=== PATIENT | female | born 1950 | race African-American/Black ===

== ENCOUNTER 2016-08-27 14:24 | Emergency (ER) | payer MEDICARE, MEDICAID ==
[~2016-08-27] VITALS: Ht 154.9 cm; Wt 92.5 kg
[2016-08-27 14:41] VITALS: BP 123/65
[2016-08-27] MEDS ORDERED: DuoNeb 0.5-3(2.5)mg/3ml neb HHN ONE (14:45)
[2016-08-27] MEDS ORDERED: Solu-MEDROL 125mg Inj IVP ONE (14:45)
--- NOTE | 2016-08-27 14:50 | Emergency Room Report ---
History of Present Illness General Chief Complaint: Dyspnea/Respdistress Source: Patient, EMS Present Illness HPI Patient is a 66-year-old female presented after increased difficulty breathing. Patient prior history of asthma and COPD. Patient reports having gradual onset of symptoms over the past 2-3 days. Patient had been having some worsening difficulty breathing with exertion. Patient had been using home oxygen. She had reportedly been taking albuterol without relief. Patient denied any fever. She denied any productive cough. She reported having minimal increase in leg swelling. Allergies: Coded Allergies: No Known Allergies (Unverified , 08/27/16) Patient History Past Medical History: see triage record, asthma, COPD Reviewed Nursing Documentation: PMH: Agreed, PSxH: Agreed Nursing Documentation-PMH Past Medical History: No History, Except For Hx Hypertension: Yes Hx Asthma: Yes Hx COPD: Yes Review of Systems All Other Systems: negative except mentioned in HPI Physical Exam Vital Signs Date Time Temp Pulse Resp B/P Pulse Ox O2 Delivery O2 Flow Rate FiO2 08/27/16 14:20 98.4 98 18 120/67 94 Room Air General Appearance: well appearing, alert, GCS 15, obese Eyes: bilateral eye PERRL ENT: normal pharynx, normal voice Neck: normal inspection, full range of motion, supple Respiratory: no respiratory distress, wheezing Cardiovascular #1: normal peripheral pulses, regular rate, rhythm, edema - trace Cardiovascular #2: 3+ carotid (R), 3+ carotid (L), 3+ dorsalis pedis (R), 3+ dorsalis pedis (L) Gastrointestinal: normal inspection, non tender, soft, no organomegaly Musculoskeletal: normal inspection, back normal Neurologic: normal inspection, alert, oriented x3, responsive Skin: normal inspection, normal color, no rash Medical Decision Making Diagnostic Impression: Primary Impression: COPD exacerbation ER Course Patient presented for shortness of breath. Differential included but was not limited to anemia, pneumonia, pneumothorax, myocardial infarction, pericardial effusion, congestive heart failure, acidosis. Because of complexity of patient' s case laboratory testing and imaging studies were ordered. Patient was given IV steroids. She was given breathing treatments. Patient was initially started on supplemental oxygen.The patient was given IV Solu- Medrol with improvement. The patient stated she felt better want to go home. She was given prescription for oral steroids. She reportedly has her inhalers. The time of discharge patient was in with her without assistance was moving air well Last Vital Signs Date Time Temp Pulse Resp B/P Pulse Ox O2 Delivery O2 Flow Rate FiO2 08/27/16 14:41 98.4 91 17 123/65 96 Nasal Cannula Status: improved Disposition: HOME, SELF-CARE Condition: Stable Scripts Prednisone* (PREDNISONE*) 20 Mg Tablet 40 MG ORAL DAILY, #10 TAB Prov: Ryan Burgess 08/27/16 Ryan Burgess Aug 27, 2016 14:50
[2016-08-27] MEDS ORDERED: PREDNISONE20 MG ORAL (15:28)
[2016-08-27 15:37] VITALS: BP 123/65
--- NOTE | 2016-08-28 11:55 | Diagnostic Imaging Report ---
Indication: Dyspnea Comparison: None A single view chest radiograph was obtained. Findings: Cardiomediastinal appearance is within normal limits for age. Pulmonary vascularity is appropriate. The diaphragmatic contour is smooth and costophrenic angles are sharp. No pleural effusions are identified. The bones are unremarkable. Impression: No acute findings
--- NOTE | 2016-08-28 16:51 | Cardiology Report ---
APPROVED REPORT EKG Measurement Heart [id number] Sinus rhythm with 1st degree AV block Low voltage QRS Borderline ECG
== END 2016-08-27 15:37 | disposition home or self-care (01) ==
LOC: EDBD 14:24 → EMR 15:10
DX: J44.1 Chronic obstructive pulmonary disease with (acute) exacerbation (principal); I10 Essential (primary) hypertension; Z99.81 Dependence on supplemental oxygen; R22.40 Localized swelling, mass and lump, unspecified lower limb; E66.9 Obesity, unspecified
CPT/HCPCS: 71010; 93005; 94640; 96374; 99284; J2930; 82962; J7620

== ENCOUNTER 2016-10-28 12:22 | Emergency (ER) | payer MEDICARE, MEDICAID ==
[~2016-10-28] VITALS: Ht 154.9 cm; Wt 91.2 kg
[~2016-10-28 12:22] MED LIST: PREDNISONE20 MG ORAL
[2016-10-28] MEDS ORDERED: VENTOLIN HFA18 GM INH (12:58)
[2016-10-28] MEDS ORDERED: KEFLEX500 MG ORAL (12:58)
[2016-10-28] MEDS ORDERED: PREDNISONE20 MG ORAL (12:58)
[2016-10-28 13:00] VITALS: BP 116/83
[2016-10-28] MEDS ORDERED: Albuterol ud Inhalation HHN ONE (13:00)
[2016-10-28] MEDS ORDERED: PredniSONE 20mg tab ORAL ONE (13:00)
[2016-10-28 14:10] VITALS: BP 116/83
--- NOTE | 2016-10-31 14:11 | Emergency Room Report ---
History of Present Illness General Chief Complaint: General Complaint Source: Patient, Medical Record Present Illness HPI 66YOF walk-in with multiple complaints SOB for 2-3 days - ran out of home albuterol. No fever/chills, chest pain Also bilateral leg swelling and area of redness to right lower extremity lateral aspect No history of abscesses, cellulitis previously Supposed to be on "water pill" but questionable compliance Allergies: Coded Allergies: No Known Allergies (Unverified , 08/27/16) Patient History Past Medical History: CHF, asthma Past Surgical History: none Pertinent Family History: none Social History: Denies: smoking, alcohol use, drug use Now: No Immunizations: UTD Reviewed Nursing Documentation: PMH: Agreed, PSxH: Agreed Nursing Documentation-PMH Past Medical History: No History, Except For Hx Hypertension: Yes Hx Asthma: Yes Hx COPD: Yes Review of Systems All Other Systems: negative except mentioned in HPI Physical Exam Vital Signs Date Time Temp Pulse Resp B/P (MAP) Pulse Ox O2 Delivery O2 Flow Rate FiO2 10/28/16 12:30 98.1 83 16 135/78 95 Room Air Sp02 EP Interpretation: reviewed, normal General Appearance: normal inspection, well appearing, no apparent distress, alert, GCS 15, non-toxic Head: normocephalic, atraumatic Eyes: bilateral eye PERRL, bilateral eye EOMI ENT: normal ENT inspection, hearing grossly normal, normal voice Neck: normal inspection, full range of motion, supple, no bony tend Respiratory: normal inspection, no respiratory distress, no retraction, no accessory muscle use, speaking full sentences, wheezing Cardiovascular #1: regular rate, rhythm, no edema Gastrointestinal: normal inspection, normal bowel sounds, non tender, soft, no guarding, no hernia Genitourinary: no CVA tenderness Musculoskeletal: normal inspection, back normal, normal range of motion, Yousuf' s Sign negative, other - Bilateral 2+ pitting edema to mid-thigh. 4cm area of cellulitis to lateral right lower extremity Neurologic: normal inspection, alert, oriented x3, responsive, stroboscope operator III-XII nml as tested, motor strength/tone normal, speech normal Psychiatric: normal inspection, judgement/insight normal, mood/affect normal Skin: normal inspection, normal color, no rash Lymphatic: normal inspection Medical Decision Making Diagnostic Impression: Primary Impression: Cellulitis and abscess of leg Additional Impression: Asthma exacerbation ER Course Right leg cellulitis: Keflex given Rx Asthma exacerbation - mild wheezing. Improved with steroids, albuterol. Rx for both given STRONGLY advised lab work, ECG, CXR and admission given patients pitting edema, ?CHF history and cellulitis with asthma exacerbation Patient only comfortable with neb, steroid and outpatient Rx, states she has guests coming for tomorrow Patient is clinically sober, is free from from distracting injury, and has intact judgement and capacity to decide to leave against medical advice. Patient came in with SOB and right leg cellulitis. Concerned for new onset CHF , complicated cellulitis. Patient verbalized understanding of my concern and my need to do CXR, ECG, labwork but patient states she cant stay (see above.). I explained to patient the risks of leaving AMA and patient informed that if they she leaves, they could get worse, she could become become critically ill, possibly become disabled or . Patient verbalized back to me understanding of these risks but still wants to leave. Last Vital Signs Date Time Temp Pulse Resp B/P (MAP) Pulse Ox O2 Delivery O2 Flow Rate FiO2 10/28/16 14:10 98.1 79 18 116/83 95 Room Air Status: improved Disposition: AGAINST MEDICAL ADVICE Condition: Improved Scripts Cephalexin* (KEFLEX*) 500 Mg Capsule 500 MG ORAL Q6H for 7 Days, #28 CAP 0 Refills Prov: RUBÉN NEAL M.D. 10/28/16 Prednisone* (PREDNISONE*) 20 Mg Tablet 40 MG ORAL DAILY for 4 Days, #4 TAB Prov: RUBÉN NEAL M.D. 10/28/16 Albuterol Sulfate (VENTOLIN HFA) 18 Gm Hfa.aer.ad 1 PUFF INH EVERY 6 HOURS for SOB, chest pain, #18 GM 0 Refills Prov: RUBÉN NEAL M.D. 10/28/16 Referrals: NOT CHOSEN IPA/,REFERRING (PCP) Patient Instructions: Acute Bronchitis, [id number], Cellulitis, [id number] Additional Instructions: - Take ALL antibiotics to treat infection of your right leg - Take prednisone daily next 4 days - Use breathing tx as needed at home for COPD - Return to ER for worsening symptoms RUBÉN NEAL M.D. Oct 31, 2016 14:11
== END 2016-10-28 14:10 | disposition left against medical advice (07) ==
LOC: EMR 14:09
DX: L03.115 Cellulitis of right lower limb (principal); L02.415 Cutaneous abscess of right lower limb; J45.901 Unspecified asthma with (acute) exacerbation; I11.0 Hypertensive heart disease with heart failure; I50.9 Heart failure, unspecified; J44.9 Chronic obstructive pulmonary disease, unspecified
CPT/HCPCS: 99284

== ENCOUNTER 2017-05-14 13:50 | Inpatient (IN) | payer MEDICARE, MEDICAID ==
[~2017-05-14] VITALS: Ht 157.5 cm; Wt 99.8 kg
[~2017-05-14 13:50] MED LIST changes: +KEFLEX500 MG ORAL; +VENTOLIN HFA18 GM INH
--- NOTE | 2017-05-14 13:58 | Emergency Room Report ---
History of Present Illness General Chief Complaint: Pain Source: Patient Present Illness HPI 67 yo female patient presents to ER complaining of hip pain since this morning. Denies hx of trauma or accident. Reports pain radiating from back to groin. Reports hx of spinal stenosis; states this pain feels different. Reports unable to watch secondary to pain. Reports taking [place] and Ibuprofen this morning; reports using [place] for pain. Reports hx of asthma, reports wheezing. Reports hx of COPD. Reports used breathing treatment this morning. Wears nasal cannula connected to oxygen mask. Denies abdominal pain. Denies chest pain, fever, abdominal pain, dysuria, hematuria, rash. Denies hx of smoking. Reports hx of HTN; reports taking Lasix every other day, reports did not take today. Allergies: Coded Allergies: No Known Allergies (Unverified , 08/27/16) Patient History Past Medical History: see triage record Reviewed Nursing Documentation: PMH: Agreed, PSxH: Agreed Nursing Documentation-PMH Past Medical History: No History, Except For Hx Hypertension: Yes Hx Asthma: Yes Hx COPD: Yes Review of Systems All Other Systems: negative except mentioned in HPI Physical Exam Vital Signs Date Time Temp Pulse Resp B/P (MAP) Pulse Ox O2 Delivery O2 Flow Rate FiO2 05/14/17 13:45 98.2 80 20 142/38 98 98.2 Sp02 EP Interpretation: reviewed, normal General Appearance: well appearing, no apparent distress, alert, GCS 15, non- toxic Head: normocephalic, atraumatic Eyes: bilateral eye normal inspection, bilateral eye PERRL ENT: hearing grossly normal, normal pharynx, no angioedema, normal voice, uvula midline, moist mucus membranes Respiratory: no rhonchi, no respiratory distress, speaking full sentences, wheezing Cardiovascular #1: regular rate, rhythm, no edema Musculoskeletal: back normal, digits/nails normal, no calf tenderness, Yousuf's Sign negative, tender - left hip Neurologic: alert, oriented x3, responsive, motor strength/tone normal, sensory intact Psychiatric: mood/affect normal Skin: no rash Lymphatic: no adenopathy Medical Decision Making PA Attestation Dr. Thacker is my supervising Physician whom patient management has been discussed with. Diagnostic Impression: Primary Impression: Hip pain Additional Impression: COPD exacerbation ER Course Pt presents to ED c/o hip pain. DDX considered but are not limited to asthma, viral URI, influenza, bronchitis, fracture, strain, sprain, UTI, COPD exacerbation. Following placement in bed, patient began to complain of breathing difficulty. Reports hx of asthma and COPD. Wheezing heard on auscultation. VITAL SIGNS are WNL, patient is afebrile. Ordered breathing treatment, labs, CT pelvis and medication. ER COURSE Patient provided with [place] for pain. Albuterol/Atrovent breathing treatment provided. Following treatment patient states still having difficulty with breathing. Wheezing still present on auscultation. Labs unremarkable, no elevation in WBC. UA negative for nitrites, WBC 2-4, epithelial cells show contamination of sample. Patient has no urinary complaints. Will not treat currently in ER for UTI. CT shows no acute process, degenerative changes. Consult with Dr. Thacker. IV fluids stopped. Dr. Thacker saw and evaluated patient. Patient moved to monitored bed. Ordered albuterol, prednisone, azithromycin and CXR. Will admit patient for SOB and unable to walk. Patient admitted to Dr. Manuel for possible COPD/CHF exacerbation. Per nurse, patient daughter reports to ER. States patient has a history of CA, reports she has not told the patient; patient is unaware of cancer status. Patient complaining of pain. Provided with morphine. Labs Test 05/14/17 13:38 05/14/17 14:04 White Blood Count 10.0 K/UL (4.8-10.8) Red Blood Count 4.59 M/UL (4.20-5.40) Hemoglobin 14.4 G/DL (12.0-16.0) Hematocrit 42.6 % (37.0-47.0) Mean Corpuscular Volume 93 FL (80-99) Mean Corpuscular Hemoglobin 31.3 PG (27.0-31.0) Mean Corpuscular Hemoglobin Concent 33.7 G/DL (32.0-36.0) Red Cell Distribution Width 11.6 % (11.6-14.8) Platelet Count 388 K/UL (150-450) Mean Platelet Volume 6.7 FL (6.5-10.1) Neutrophils (%) (Auto) 67.6 % (45.0-75.0) Lymphocytes (%) (Auto) 21.5 % (20.0-45.0) Monocytes (%) (Auto) 7.6 % (1.0-10.0) Eosinophils (%) (Auto) 2.1 % (0.0-3.0) Basophils (%) (Auto) 1.2 % (0.0-2.0) Sodium Level 137 MMOL/L (136-145) Potassium Level 3.9 MMOL/L (3.5-5.1) Chloride Level 101 MMOL/L (98-107) Carbon Dioxide Level 27 MMOL/L (21-32) Anion Gap 9 mmol/L (5-15) Blood Urea Nitrogen 10 mg/dL (7-18) Creatinine 0.8 MG/DL (0.55-1.30) Estimat Glomerular Filtration Rate > 60 mL/min (>60) Glucose Level 106 MG/DL (74-106) Calcium Level 9.6 MG/DL (8.5-10.1) Total Bilirubin 0.7 MG/DL (0.2-1.0) Aspartate Amino Transf (AST/SGOT) 21 U/L (15-37) Alanine Aminotransferase (ALT/SGPT) 28 U/L (12-78) Alkaline Phosphatase 80 U/L (46-116) Total Protein 7.8 G/DL (6.4-8.2) Albumin 4.0 G/DL (3.4-5.0) Globulin 3.8 g/dL Albumin/Globulin Ratio 1.1 (1.0-2.7) Lipase 77 U/L (73-393) Urine Color Yellow Urine Appearance Clear Urine pH 5 (4.5-8.0) Urine Specific [place] 1.020 (1.005-1.035) Urine Protein 2+ (NEGATIVE) Urine Glucose (UA) Negative (NEGATIVE) Urine Ketones 1+ (NEGATIVE) Urine Occult Blood Negative (NEGATIVE) Urine Nitrite Negative (NEGATIVE) Urine Bilirubin Negative (NEGATIVE) Urine Urobilinogen 1 MG/DL (0.0-1.0) Urine Leukocyte Esterase 1+ (NEGATIVE) Urine RBC 0-2 /HPF (0 - 2) Urine WBC 2-4 /HPF (0 - 2) Urine Squamous Epithelial Cells Moderate /LPF (NONE/OCC) Urine Bacteria Occasional /HPF (NONE) CT/MRI/US Diagnostic Results CT/MRI/US Diagnostic Results : Imaging Test Ordered: CT hip Impression No acute bony trauma Degenerative changes, as described Last Vital Signs Date Time Temp Pulse Resp B/P (MAP) Pulse Ox O2 Delivery O2 Flow Rate FiO2 05/14/17 13:45 98.2 80 20 142/38 98 98.2 Disposition: ADMITTED INPATIENT [employer] May 14, 2017 13:58
[2017-05-14] MEDS ORDERED: Albuterol/Ipratropium 3ml neb HHN ONE (14:15)
[2017-05-14] MEDS ORDERED: Norco 5mg/325mg tab ORAL ONE (14:15)
[2017-05-14 14:54] LABS: APPEARANCE,URINE CLEAR; BILIRUBIN, URINE NEGATIVE (NEGATIVE); GLUCOSE, URINE (UA) NEGATIVE (NEGATIVE); KETONES,URINE 1+ (NEGATIVE); LEUKOCYTE ESTERASE ,URINE 1+ (NEGATIVE); NITRITE,URINE NEGATIVE (NEGATIVE); PH,URINE 5 (4.5-8.0); PROTEIN,URINE 2+ (NEGATIVE); UROBILINOGEN,URINE 1 MG/DL (0.0-1.0)
[2017-05-14 14:55] LABS: COLOR,URINE YELLOW
[2017-05-14 14:57] VITALS: BP 142/38
[2017-05-14 15:01] LABS: BASOPHILS % (AUTO) 1.2 % (0.0-2.0); EOSINOPHILS % (AUTO) 2.1 % (0.0-3.0); HEMATOCRIT 42.6 % (37.0-47.0); HEMOGLOBIN 14.4 G/DL (12.0-16.0); LYMPHOCYTES % (AUTO) 21.5 % (20.0-45.0); MEAN CORPUSCULAR VOLUME 93 FL (80-99); MONOCYTES % (AUTO) 7.6 % (1.0-10.0); NEUTROPHILS % (AUTO) 67.6 % (45.0-75.0); PLATELET COUNT 388 K/UL (150-450); RED BLOOD COUNT 4.59 M/UL (4.20-5.40); RED CELL DISTRIBUTION WIDTH 11.6 % (11.6-14.8)
--- NOTE | 2017-05-14 15:23 | Diagnostic Imaging Report ---
Indication: Left hip pain Technique: Noncontrast spiral acquisitions obtained through the pelvis. Multiplanar reconstructions generated. Total dose length product 603.51 mGycm. CTDIvol(s) 22.28 mGy. Dose reduction achieved using automated exposure control Comparison: none Findings: No acute fractures. No dislocations. There is degenerative narrowing of the right hip joint, with a large subchondral cyst on the acetabular side of the joint as well as multiple smaller subchondral cysts. Less severe degenerative changes of the left hip are noted. There are degenerative changes of the lumbosacral junction. No significant soft tissue contusion or hematoma. The included pelvic viscera are unremarkable. Impression: No acute bony trauma Degenerative changes, as described The CT scanner at [facility] is accredited by the [employer] and the scans are performed using protocols designed to limit radiation exposure to as low as reasonably achievable to attain images of sufficient resolution adequate for diagnostic evaluation.
[2017-05-14] MEDS ORDERED: Azithromycin 500 MG in NS 275 ML IV ONE (15:30)
[2017-05-14] MEDS ORDERED: Albuterol ud Inhalation HHN ONE (15:30)
[2017-05-14 15:35] LABS: ANION GAP 9 mmol/L (5-15); BLOOD UREA NITROGEN 10 mg/dL (7-18); CALCIUM 9.6 MG/DL (8.5-10.1); CARBON DIOXIDE 27 MMOL/L (21-32); CHLORIDE 101 MMOL/L (98-107); CREATININE 0.8 MG/DL (0.55-1.30); POTASSIUM 3.9 MMOL/L (3.5-5.1); SODIUM 137 MMOL/L (136-145)
[2017-05-14 15:40] LABS: ALANINE AMINOTRANSFERASE 28 U/L (12-78); ALBUMIN/GLOBULIN RATIO 1.1 (1.0-2.7); ALKALINE PHOSPHATASE 80 U/L (46-116); ASPARTATE AMINO TRANSFERASE 21 U/L (15-37); BILIRUBIN,TOTAL 0.7 MG/DL (0.2-1.0)
[2017-05-14] MEDS ORDERED: Azithromycin 500mg Inj IV ONE (15:47)
[2017-05-14] MEDS ORDERED: Morphine Sulfate 2mg/ml Inj IVP ONE (16:30)
--- NOTE | 2017-05-14 16:41 | Diagnostic Imaging Report ---
Indication: Shortness of breath Technique: One view of the chest Comparison: 08/27/2016 Findings: Patient is slightly rotated to the right. There is some atelectasis at the right lung base. Lungs and pleural spaces are otherwise clear. Heart size is normal. The aorta is tortuous ectatic and calcified. Mild degenerative changes of the left shoulder are noted Impression: Right basilar atelectasis. No acute process otherwise
[2017-05-14] MEDS ORDERED: UNOBMED (17:04)
[2017-05-14] MEDS ORDERED: ALBUTEROL2.5 MG/3 M INH (17:43)
[2017-05-14] MEDS ORDERED: HYDROCODON-ACE1 EA15 (17:43)
[2017-05-14] MEDS ORDERED: AMLODIPINE BESY10 MG PO (17:47)
[2017-05-14] MEDS ORDERED: VENTOLIN HFA18 GM INH (17:47)
[2017-05-14] MEDS ORDERED: FUROSEMIDE20 M1 PO (17:47)
[2017-05-14] MEDS ORDERED: IBUPROFEN600 MG ORAL (17:49)
[2017-05-14] MEDS ORDERED: BENAZEPRIL HCL40 MG PO (17:49)
[2017-05-14 17:56] VITALS: BP 132/75
--- NOTE | 2017-05-14 17:56 | History and Physical ---
History of Present Illness General Date patient seen: May 14, 2017 Time patient seen: 17:56 Reason for Hospitalization: COPD exacerbation, intractable pain Present Illness HPI 67y/o female with pmh of COPD/asthma on home O2 (2-3L O2), HTN, CHF who presents with L lower back/hip pain and SOB/wheezing. Pt states she had sudden onset L lower back pain radiating toward L hip and groin for the past few days, worsening. Notes pain worse w/ laying flat, walking. States this is different than her usual spinal stenosis pain. Pain does not radiate down leg. Denies numbness/tingling, f/c, n/v, d/c, chest pain. Also notes sudden SOB/wheezing for the past few days, using rescue inhaler more often. States she is compliant w/ meds. Denies recent trauma, heavy lifting, accident. Difficulty ambulating 2/ 2 pain. Cough at baseline. In ED, pt had CT pelvis done which was unremarkable except for degenerative changes. Pt noted to have significant wheezing. Given nebs, steroids, azithro in ED. Allergies: Coded Allergies: No Known Allergies (Unverified , 08/27/16) Medication History Scheduled Albuterol Sulfate (Ventolin Hfa), 2 PUFFS INH EVERY 4 HOURS, (Reported) Albuterol Sulfate* (Albuterol Sulfate Hhn*), 1 VIAL INH Q6HR, (Reported) Amlodipine Besylate* (Amlodipine Besylate*), 10 MG PO DAILY, (Reported) Benazepril Hcl* (Benazepril Hcl*), 40 MG PO DAILY, (Reported) Furosemide* (Lasix*), 20 MG PO DAILY, (Reported) Ibuprofen* (Motrin*), 500 MG ORAL FOUR TIMES A DAY, (Reported) Scheduled PRN Hydrocodone/Acetaminophen 5-325* (Hydrocodone/Acetaminophen 5-325*), Q6HR PRN for For Pain, (Reported) Discontinued Medications Albuterol Sulfate (Ventolin Hfa), 1 PUFF INH EVERY 6 HOURS Discontinued Reason: Pt stopped taking med Cephalexin* (Keflex*), 500 MG ORAL Q6H Discontinued Reason: Pt stopped taking med Prednisone* (Prednisone*), 40 MG ORAL DAILY Discontinued Reason: Pt stopped taking med Prednisone* (Prednisone*), 40 MG ORAL DAILY Discontinued Reason: Pt stopped taking med Patient History History Provided By: Patient, Medical Record Healthcare decision maker Resuscitation status Advanced Directive on File Past Medical/Surgical History Past Medical/Surgical History: (1) CHF (congestive heart failure) (2) Lumbar spinal stenosis (3) HTN (hypertension) (4) Asthma-COPD overlap syndrome Family History Family History: Patient reports no known family medical history. Social History Social History: (1) Lives with family (2) Former tobacco use Review of Systems Constitutional: Reports: weakness Eye: Reports: no symptoms ENT: Reports: no symptoms Respiratory: Reports: cough, shortness of breath, wheezing Cardiovascular: Reports: no symptoms Gastrointestinal: Reports: no symptoms Genitourinary: Reports: no symptoms Musculoskeletal: Reports: back pain, joint pain, muscle pain Skin: Reports: no symptoms Psychiatric: Reports: no symptoms Neurological: Reports: no symptoms Endocrine: Reports: no symptoms Hematologic/Lymphatic: Reports: no symptoms Physical Exam Physical Exam Narrative General: alert, cooperative, no distress, appears stated age Head: normocephalic, without obvious abnormality, atraumatic Eyes: conjunctivae/corneas clear. PERRL, EOM's intact Throat: lips, mucosa, and tongue normal. MMM Neck: supple, symmetrical, trachea midline, and no JVD Lungs: +wheezing b/l Heart: regular rate and rhythm, S1, S2 normal, no murmur, click, rub or gallop Abdomen: soft, non-tender, non-distended, bowel sounds normal; no masses or organomegaly Extremities: extremities normal, atraumatic, no cyanosis or edema MSK: +TTP of L lower back/hip/pelvic area Pulses: 2+ and symmetric Skin: skin color, texture, turgor normal; no rashes or lesions Neurologic: grossly normal, no focal deficits Last 24 Hour Vital Signs Date Time Temp Pulse Resp B/P (MAP) Pulse Ox O2 Delivery O2 Flow Rate FiO2 05/14/17 17:43 97 25 Room Air 05/14/17 16:44 98.2 05/14/17 15:44 98.2 05/14/17 15:35 82 16 100 Nasal Cannula 3.0 32 05/14/17 15:30 81 18 Nasal Cannula 3.0 98 05/14/17 14:57 98.2 05/14/17 14:57 80 16 142/38 100 Nasal Cannula 3.0 32 05/14/17 14:36 86 16 100 Nasal Cannula 3.0 32 05/14/17 14:28 84 16 98 Nasal Cannula 3.0 32 05/14/17 14:28 84 16 Nasal Cannula 3.0 98 05/14/17 13:45 98.2 80 20 142/38 98 98.2 Laboratory Tests Test 05/14/17 13:38 05/14/17 14:04 White Blood Count 10.0 K/UL (4.8-10.8) Red Blood Count 4.59 M/UL (4.20-5.40) Hemoglobin 14.4 G/DL (12.0-16.0) Hematocrit 42.6 % (37.0-47.0) Mean Corpuscular Volume 93 FL (80-99) Mean Corpuscular Hemoglobin 31.3 PG (27.0-31.0) H Mean Corpuscular Hemoglobin Concent 33.7 G/DL (32.0-36.0) Red Cell Distribution Width 11.6 % (11.6-14.8) Platelet Count 388 K/UL (150-450) Mean Platelet Volume 6.7 FL (6.5-10.1) Neutrophils (%) (Auto) 67.6 % (45.0-75.0) Lymphocytes (%) (Auto) 21.5 % (20.0-45.0) Monocytes (%) (Auto) 7.6 % (1.0-10.0) Eosinophils (%) (Auto) 2.1 % (0.0-3.0) Basophils (%) (Auto) 1.2 % (0.0-2.0) Sodium Level 137 MMOL/L (136-145) Potassium Level 3.9 MMOL/L (3.5-5.1) Chloride Level 101 MMOL/L (98-107) Carbon Dioxide Level 27 MMOL/L (21-32) Anion Gap 9 mmol/L (5-15) Blood Urea Nitrogen 10 mg/dL (7-18) Creatinine 0.8 MG/DL (0.55-1.30) Estimat Glomerular Filtration Rate > 60 mL/min (>60) Glucose Level 106 MG/DL (74-106) Calcium Level 9.6 MG/DL (8.5-10.1) Total Bilirubin 0.7 MG/DL (0.2-1.0) Aspartate Amino Transf (AST/SGOT) 21 U/L (15-37) Alanine Aminotransferase (ALT/SGPT) 28 U/L (12-78) Alkaline Phosphatase 80 U/L (46-116) Total Protein 7.8 G/DL (6.4-8.2) Albumin 4.0 G/DL (3.4-5.0) Globulin 3.8 g/dL Albumin/Globulin Ratio 1.1 (1.0-2.7) Lipase 77 U/L (73-393) Urine Color Yellow Urine Appearance Clear Urine pH 5 (4.5-8.0) Urine Specific Adin 1.020 (1.005-1.035) Urine Protein 2+ (NEGATIVE) H Urine Glucose (UA) Negative (NEGATIVE) Urine Ketones 1+ (NEGATIVE) H Urine Occult Blood Negative (NEGATIVE) Urine Nitrite Negative (NEGATIVE) Urine Bilirubin Negative (NEGATIVE) Urine Urobilinogen 1 MG/DL (0.0-1.0) H Urine Leukocyte Esterase 1+ (NEGATIVE) H Urine RBC 0-2 /HPF (0 - 2) Urine WBC 2-4 /HPF (0 - 2) Urine Squamous Epithelial Cells Moderate /LPF (NONE/OCC) H Urine Bacteria Occasional /HPF (NONE) Height (Feet): 5 Height (Inches): 2.00 Weight (Pounds): 220 Medications Current Medications Medications (Trade) Dose Ordered Sig/Sadie Route PRN Reason Start Time Stop Time Status Last Admin Dose Admin Acetaminophen (Tylenol) 650 mg Q4H PRN ORAL Mild Pain (Pain Scale 1-3) 05/14/17 18:00 06/13/17 17:59 UNV Acetaminophen (Tylenol) 650 mg Q4H PRN ORAL fever 05/14/17 18:00 06/13/17 17:59 UNV Albuterol/ Ipratropium (Albuterol/ Ipratropium) 3 ml Q2H PRN HHN Shortness of Breath 05/14/17 18:00 05/19/17 17:59 UNV Albuterol/ Ipratropium (Albuterol/ Ipratropium) 3 ml Q6H HHN 05/14/17 18:00 05/19/17 17:59 UNV Amlodipine Besylate (Norvasc) 10 mg DAILY ORAL 05/15/17 09:00 06/14/17 08:59 UNV Bisacodyl (Dulcolax) 10 mg DAILYPRN PRN RECTAL Constipation 05/14/17 18:00 06/13/17 17:59 UNV Dextrose (Dextrose 50%) STAT PRN IV Hypoglycemia 05/14/17 18:00 06/13/17 17:59 UNV Docusate Sodium (Colace) 100 mg EVERY 12 HOURS ORAL 05/14/17 21:00 06/13/17 20:59 UNV Heparin Sodium (Porcine) (Heparin 5000 units/ml) 5,000 units EVERY 12 HOURS SUBQ 05/14/17 21:00 06/13/17 20:59 UNV Magnesium Hydroxide (Mom) 30 ml HSPRN PRN ORAL Constipation 05/14/17 18:00 06/13/17 17:59 UNV Ondansetron HCl (Zofran) 4 mg Q6H PRN IVP Nausea & Vomiting 05/14/17 18:00 06/13/17 17:59 UNV Assessment/Plan Problem List: (1) Acute exacerbation of COPD with asthma ICD Codes: J44.1 - Chronic obstructive pulmonary disease with (acute) exacerbation; J45.901 - Unspecified asthma with (acute) exacerbation SNOMED: 3089537020908 (2) L lower back/hip/pelvic pain Assessment & Plan: Intractable pain w/ difficulty ambulating (3) Chronic diastolic (congestive) heart failure ICD Codes: I50.32 - Chronic diastolic (congestive) heart failure SNOMED: 58191304, 526640814 (4) HTN (hypertension) ICD Codes: I10 - Essential (primary) hypertension SNOMED: 84249468 (5) Lumbar spinal stenosis ICD Codes: M48.061 - Spinal stenosis, lumbar region without neurogenic claudication SNOMED: 24701704 Status: stable Assessment/Plan Admit to tele Pulm consulted s/p solumedrol 125mg IV in ED Cont solumedrol 60mg IV BID and taper as tolerated Cont duonebs ATC and PRN Azithro 500mg daily x 5 days Cont O2, titrate to O2 sat 88-92% Check trop, BNP, TTE Check MRI L spine/sacrum given persistent pain, difficulty ambulating PT eval Pain control, bowel regimen Supportive care DVT Prophylaxis: SCD, HSQ Code Status: Full Hospital Classification Declaration: Based on this initial evaluation, and depending on the patient's clinical course, I anticipate that this patient will require hospitalization for 2-3 days for COPD exacerbation, intractable pain, and close respiratory/hemodynamic monitoring. Disposition: Once the patient is stable to leave the hospital, I anticipate the patient will likely be discharged to the following environment: home with HH vs SNF I spent 69 minutes on this patient's case, and >50% were dedicated to counseling and/or care coordination. Discussed with patient/family, nursing staff, SW/CM, pulm, ER physician regarding clinical status, treatment course, and disposition planning. Time of note may not reflect time of encounter. Raymon Seymour M.D. May 14, 2017 17:56
[2017-05-14] MEDS ORDERED: Albuterol/Ipratropium 3ml neb HHN PRN (18:00)
[2017-05-14] MEDS ORDERED: Milk of Magnesia 30ml Ud ORAL PRN (18:00)
[2017-05-14] MEDS ORDERED: Morphine Sulfate 4mg/ml Inj IVP PRN (18:30)
[2017-05-14] MEDS ORDERED: HYDROcodone/Acetamin 7.5/325 tab ORAL PRN (18:30)
[2017-05-14] MEDS: Albuterol/Ipratropium 3ml neb HHN SCH (19:23)
[2017-05-14 20:00] VITALS: BP 142/82
[2017-05-14] MEDS: HYDROcodone/Acetamin 10/325 tab ORAL PRN (20:41)
[2017-05-14] MEDS: Solu-MEDROL 125mg Inj IVP SCH (20:42)
[2017-05-14] MEDS: Heparin 5000 units/ml inj SUBQ SCH (20:46)
[2017-05-14] MEDS: Docusate 100mg cap ORAL SCH (20:49)
[2017-05-15] VITALS: BP 128/68
[2017-05-15] MEDS: HYDROcodone/Acetamin 10/325 tab ORAL PRN ×3 (00:57→13:20)
[2017-05-15] MEDS: Albuterol/Ipratropium 3ml neb HHN SCH ×4 (01:08→18:54)
[2017-05-15 04:00] VITALS: BP 123/82
[2017-05-15 08:00] VITALS: BP 147/80
[2017-05-15] MEDS: Docusate 100mg cap ORAL SCH ×2 (08:16→21:08)
[2017-05-15] MEDS: Solu-MEDROL 125mg Inj IVP SCH ×2 (08:17→21:08)
[2017-05-15] MEDS: Heparin 5000 units/ml inj SUBQ SCH ×2 (08:20→21:10)
[2017-05-15 08:46] LABS: HEMATOCRIT 38.6 % (37.0-47.0); HEMOGLOBIN 13.2 G/DL (12.0-16.0); MEAN CORPUSCULAR VOLUME 94 FL (80-99); PLATELET COUNT 338 K/UL (150-450); RED BLOOD COUNT 4.12 M/UL (4.20-5.40); RED CELL DISTRIBUTION WIDTH 11.3 % (11.6-14.8); WHITE BLOOD COUNT 6.4 K/UL (4.8-10.8)
[2017-05-15 08:57] LABS: ANION GAP 11 mmol/L (5-15); BLOOD UREA NITROGEN 11 mg/dL (7-18); CALCIUM 9.4 MG/DL (8.5-10.1); CARBON DIOXIDE 25 MMOL/L (21-32); CHLORIDE 101 MMOL/L (98-107); CREATININE 0.6 MG/DL (0.55-1.30); POTASSIUM 3.9 MMOL/L (3.5-5.1); SODIUM 137 MMOL/L (136-145)
[2017-05-15] MEDS ORDERED: Azithromycin 250mg tab ORAL SCH (09:00)
[2017-05-15] MEDS: Advair 250/50 Inhaler - 14 dose INH SCH ×4 (09:00→22:00)
--- NOTE | 2017-05-15 10:02 | Consultation ---
Consult Note Assessment/Plan [facility] DICT # [id number] MARK OLIVARES M.D. May 15, 2017 10:02
[2017-05-15 12:00] VITALS: BP 121/60
--- NOTE | 2017-05-15 14:21 | Diagnostic Imaging Report ---
Clinical Indication: Shortness of breath, history of COPD and asthma Technique: Spiral acquisitions obtained through the chest. No IV contrast utilized, . Multiplanar reconstructions generated. Total dose length product 937.7 mGycm. CTDIvol(s) 25.84 mGy. Dose reduction achieved using automated exposure control Comparison: none Findings: There is thickening of the minor fissure and portions of the adjacent major fissure, and minimal atelectasis or scarring of the adjoining lung parenchyma. Some linear atelectasis or scarring is seen at the right lung base. Minimal scarring or atelectasis is seen in the superior segment of the left lower lobe and in the anterior inferior lingula. The remainder of the lungs and pleural spaces are clear. Some cystic spaces are seen in the superior segment of the left lower lobe. No infiltrates, effusions, masses, or nodules demonstrated The heart size is normal. There is minimal anterior wall pericardial thickening versus fluid. No mediastinal or hilar mass or adenopathy. Included portions of the thyroid are unremarkable. No axillary or chest wall mass or adenopathy demonstrated. The bones demonstrate degenerative spondylosis changes. Included upper abdominal anatomy is grossly unremarkable Impression: No definite acute abnormality Bilateral atelectasis and/or scarring, as described Cystic spaces within the left lower lobe, probably small bullae Minimal anterior wall pericardial thickening versus fluid Degenerative spondylosis incidentally noted The CT scanner at [facility] is accredited by the [employer] and the scans are performed using protocols designed to limit radiation exposure to as low as reasonably achievable to attain images of sufficient resolution adequate for diagnostic evaluation.
--- NOTE | 2017-05-15 15:52 | General Progress Note ---
Assessment/Plan Problem List: (1) Acute exacerbation of COPD with asthma ICD Codes: J44.1 - Chronic obstructive pulmonary disease with (acute) exacerbation; J45.901 - Unspecified asthma with (acute) exacerbation SNOMED: 9294804089453 (2) L lower back/hip/pelvic pain Assessment & Plan: Intractable pain w/ difficulty ambulating (3) Chronic diastolic (congestive) heart failure ICD Codes: I50.32 - Chronic diastolic (congestive) heart failure SNOMED: 41602754, 684809430 (4) HTN (hypertension) ICD Codes: I10 - Essential (primary) hypertension SNOMED: 25395116 (5) Lumbar spinal stenosis ICD Codes: M48.061 - Spinal stenosis, lumbar region without neurogenic claudication SNOMED: 46466169 Status: stable Assessment/Plan Pulm consulted CT chest reviewed. Shows bibasilar atelectasis/scarring, some bullae s/p solumedrol 125mg IV in ED Cont solumedrol 60mg IV BID and taper as tolerated per pulm Cont duonebs ATC and PRN Azithro 500mg daily x 5 days (05/14-) Cont O2, titrate to O2 sat 88-92% Trop neg. BNP unremarkable. TTE shows normal EF, diastolic dysfunction. F/u MRI L spine/sacrum given persistent pain, difficulty ambulating PT eval Pain control, bowel regimen Supportive care DC once cleared by pulm and pain controlled DVT Prophylaxis: SCD, HSQ Code Status: Full Hospital Classification Declaration: Based on this initial evaluation, and depending on the patient's clinical course, I anticipate that this patient will require hospitalization for 1-2 days for COPD exacerbation, intractable pain, and close respiratory/hemodynamic monitoring. Disposition: Once the patient is stable to leave the hospital, I anticipate the patient will likely be discharged to the following environment: home with HH vs SNF (pt currently declining SNF) Discussed with patient/family, nursing staff, SW/CM, pulm, regarding clinical status, treatment course, and disposition planning. Time of note may not reflect time of encounter. Subjective Date patient seen: May 15, 2017 Time patient seen: 15:51 ROS Limited/Unobtainable: No Constitutional: Reports: no symptoms HEENT: Reports: no symptoms Cardiovascular: Reports: no symptoms Respiratory: Reports: cough, shortness of breath Gastrointestinal/Abdominal: Reports: no symptoms Genitourinary: Reports: no symptoms Neurologic/Psychiatric: Reports: no symptoms Endocrine: Reports: no symptoms Hematologic/Lymphatic: Reports: no symptoms Allergies: Coded Allergies: No Known Allergies (Unverified , 08/27/16) All Systems: reviewed and negative except above Subjective No acute o/n events MRI L/S spine done, awaiting report CT chest done showed bibasilar atelectasis/scarring, some bullae Pt states SOB/wheezing improved. Cont to c/o L lower back/hip/pelvic pain. States norco 10 doesn't help anymore Objective Last 24 Hour Vital Signs Date Time Temp Pulse Resp B/P (MAP) Pulse Ox O2 Delivery O2 Flow Rate FiO2 05/15/17 13:15 Nasal Cannula 05/15/17 13:15 Nasal Cannula 05/15/17 12:00 87 05/15/17 12:00 97.5 78 18 121/60 98 97.5 05/15/17 08:17 102 147/80 05/15/17 08:00 97 05/15/17 08:00 97.6 102 19 147/80 94 97.6 05/15/17 07:28 92 20 99 Nasal Cannula 3.0 32 05/15/17 07:16 97 Nasal Cannula 3.0 32 05/15/17 07:16 Nasal Cannula 3.0 32 05/15/17 07:16 90 18 97 Nasal Cannula 3.0 32 05/15/17 04:00 90 05/15/17 04:00 97.7 82 23 123/82 95 97.7 05/15/17 01:18 96 20 99 Nasal Cannula 3.0 32 05/15/17 01:18 87 22 99 Nasal Cannula 3.0 32 05/15/17 01:08 89 22 98 Nasal Cannula 3.0 32 05/15/17 00:00 97.3 83 23 128/68 96 97.3 05/15/17 00:00 71 05/14/17 20:00 86 05/14/17 20:00 97.0 87 20 142/82 95 97.0 05/14/17 19:32 96 20 98 Nasal Cannula 3.0 32 05/14/17 19:24 95 22 96 Nasal Cannula 3.0 32 05/14/17 18:45 98.2 97 25 132/75 95 Room Air 3.0 32 98.2 05/14/17 17:56 97 25 132/75 95 Room Air 05/14/17 17:43 97 25 Room Air 05/14/17 17:14 98.2 05/14/17 16:44 98.2 Intake and Output 05/14/17 05/15/17 19:00 07:00 Intake Total 325 ml Balance 325 ml Intake Oral 50 ml IV Total 275 ml # Voids 1 2 Laboratory Tests 05/14/17 16:25: Pro-B-Type Natriuretic Peptide 135H 05/14/17 17:45: Troponin I 0.012 05/14/17 19:42: Arterial Blood pH 7.446, Arterial Blood Partial Pressure CO2 33.9L, Arterial Blood Partial Pressure O2 81.2, Arterial Blood HCO3 22.2, Arterial Blood Oxygen Saturation 95.9, Arterial Blood Base Excess -0.6, Asa Test Positive 05/15/17 06:05: White Blood Count 6.4, Red Blood Count 4.12L, Hemoglobin 13.2, Hematocrit 38.6, Mean Corpuscular Volume 94, Mean Corpuscular Hemoglobin 32.2H, Mean Corpuscular Hemoglobin Concent 34.3, Red Cell Distribution Width 11.3L, Platelet Count 338, Mean Platelet Volume 6.7, Neutrophils (%) (Auto) , Lymphocytes (%) (Auto) , Monocytes (%) (Auto) , Eosinophils (%) (Auto) , Basophils (%) (Auto) , Differential Total Cells Counted 100, Neutrophils % (Manual) 88H, Lymphocytes % (Manual) 10L, Monocytes % (Manual) 2, Eosinophils % (Manual) 0, Basophils % ( Manual) 0, Band Neutrophils 0, Platelet Estimate Adequate, Platelet Morphology Normal, Sodium Level 137, Potassium Level 3.9, Chloride Level 101, Carbon Dioxide Level 25, Anion Gap 11, Blood Urea Nitrogen 11, Creatinine 0.6, Estimat Glomerular Filtration Rate > 60, Glucose Level 136H, Calcium Level 9.4, Magnesium Level 2.0 Height (Feet): 5 Height (Inches): 2.00 Weight (Pounds): 220 Objective General: alert, cooperative, no distress, appears stated age Head: normocephalic, without obvious abnormality, atraumatic Eyes: conjunctivae/corneas clear. PERRL, EOM's intact Throat: lips, mucosa, and tongue normal. MMM Neck: supple, symmetrical, trachea midline, and no JVD Lungs: +wheezing b/l Heart: regular rate and rhythm, S1, S2 normal, no murmur, click, rub or gallop Abdomen: soft, non-tender, non-distended, bowel sounds normal; no masses or organomegaly Extremities: extremities normal, atraumatic, no cyanosis or edema MSK: +TTP of lumbar paraspinal muscle and sacral area, +TTP of L hip, +TTP of L pelvic area Pulses: 2+ and symmetric Skin: skin color, texture, turgor normal; no rashes or lesions Neurologic: grossly normal, no focal deficits Raymon Seymour M.D. May 15, 2017 15:52
[2017-05-15 16:00] VITALS: BP 103/41
[2017-05-15] MEDS ORDERED: oxyCODONE HCL/Acetaminophen 5/325mg ORAL PRN (16:00)
--- NOTE | 2017-05-15 16:48 | Diagnostic Imaging Report ---
Indication: 67-year-old female inpatient with lumbosacral pain x2 days Technique: Sagittal T1 and T2 fast spin echo, sagittal STIR, axial T1 and T2 fast spin-echo images of the lumbar spine Comparison: none Findings: But alignment is normal. Vertebral body heights are preserved. Slight diffuse heterogeneity to marrow signal is noted, but no definite significant signal abnormality. The conus medullaris terminates at the L1 level. At T12-L1, there is mild degenerative disc narrowing and circumferential annular bulge. This results in borderline narrowing of the spinal canal. This also results in very mild compromise of the bilateral neural foramina. At L1-2, there is mild degenerative disc narrowing. There is circumferential annular bulge which results in moderate narrowing of the spinal canal, minimal AP dimension 7 mm. This is exacerbated by short pedicles. There is minimal compromise of the bilateral neural foramina, more so on the right. At L2-3, there is minimal spinal canal narrowing. There is circumferential annular bulge, which results in moderate to severe narrowing of the spinal canal at this level, minimum AP dimension 5-6 mm with clumping of the nerve roots. This is exacerbated by short pedicles. There is slight clumping of the nerve roots. The bulging disc and facet arthrosis results in mild to moderate left, mild right neural foraminal narrowing. At L3-4, there is mild degenerative disc narrowing. There is circumferential annular bulge. This, in combination with facet arthrosis and short pedicles results in moderate to severe narrowing of the spinal canal, minimum AP dimension 5 mm. There is severe left and moderate to severe right neural foraminal compromise due to the bulging disc as well as facet arthrosis. At L4-5, there is mild degenerative disc narrowing. There is generalized circumferential annular bulge as well as more focal broad-based central, right paracentral and subarticular and intraforaminal disc protrusion. This, in combination with short pedicles, facet arthrosis, and ligamentum flavum hypertrophy results in moderate to severe narrowing of the spinal canal, minimum AP dimension 5 mm, with clumping of the nerve roots. In addition, there is compromise of the left lateral recess and obliteration of the right lateral recess. The bulging disc and facet arthrosis results in moderate left and severe right neural foraminal stenosis. At L5-S1, the disc space is largely preserved. There is circumferential annular bulge. There is also broad-based central and more focal right subarticular and intraforaminal disc protrusion which obliterates the right lateral recess and significantly compromises the right neural foramen. There is mild compromise of the left neural foramen due to bulging disc and facet arthrosis. The included extraspinal soft tissues are remarkable for probable uterine fundal fibroid measuring 2.4 cm. This is uniformly low in signal Impression: Extensive multilevel degenerative changes, as detailed level by level basis above No acute abnormality demonstrated. Incidental finding of probable degenerated uterine fibroid
[2017-05-15 20:00] VITALS: BP 141/74
--- NOTE | 2017-05-15 20:01 | Consultation ---
DATE OF CONSULTATION: 05/15/2017 PULMONARY CONSULTATION CONSULTING PHYSICIAN: Juan J Sky M.D. REFERRING PHYSICIAN: Raymon Seymour M.D. REASON FOR CONSULTATION: Exacerbation of chronic obstructive pulmonary disease. HISTORY OF PRESENT ILLNESS: The patient is a 67-year-old female, former smoker, with history of obesity, asthma-COPD overlap syndrome, hypertension, spinal stenosis, who presented to the ER actually with hip pain, but was also complaining of three to four days of increased cough, congestion, and shortness of breath. She was last seen by my partner, Dr. Terry at [facility] in October 2016. Subsequently, she failed to follow up and has not seen any product planner. In fact, she states that most of her care has been at clinic. At the time of previous discharge, she was prescribed Bevespi, but she was unable to fill this secondary to cost issue. She was also previously on Symbicort and Spiriva, which she is no longer on. She now only uses a combination of Proventil, a metered-dose inhaler, and nebulizer solution at home. Nonetheless, she presented with three to four days of cough, congestion, shortness of breath, rhinorrhea, and increased O2 needs. She also has mild diastolic dysfunction for which she takes Lasix every other day. She did have marked hip and back pain for which she was initially seen in the emergency department. She still states that is her major complaint. She was wheezing and tight in the emergency room, so she received bronchodilator and steroid therapy. She was thereafter admitted to the hospital and started on eszup-ixu-xgnha bronchodilator and steroid therapy. She is currently on methylprednisolone 60 mg IV b.i.d. She feels mild improvement and also resumed Advair and Spiriva, which she previously was on. She received one dose of azithromycin in the ER and is now on daily oral azithromycin for antiinflammatory effect. Her laboratory workup was unremarkable except for possible urinary tract infection. Chest x-ray also showed some right basilar atelectasis. Interestingly, the patient states that a year ago in the [place], she was told that she has a pulmonary nodule and she was recommended to have it biopsied, but this was never done. Chest x-ray at [facility] on 09/20/2016, was unremarkable as well. PAST MEDICAL HISTORY: 1. COPD-asthma overlap syndrome. 2. Obesity. 3. Former smoker. 4. CHF with mild diastolic dysfunction. 5. Hypertension. 6. Spinal stenosis. 7. Chronic low back pain. MEDICATIONS: Pipzu-ap-haoriyhlf medications reviewed. Current medications reviewed. ALLERGIES: No known drug allergies. SOCIAL HISTORY: Extensive former smoker, none current. No drug or alcohol use. REVIEW OF SYSTEMS: Negative other than in the history of present illness. PHYSICAL EXAMINATION: VITAL SIGNS: Temperature 97.7 degrees, pulse 102, blood pressure 147/80, respiratory rate 20, and saturating 99% on 3 L nasal cannula. GENERAL: She is an obese female, in no acute distress. Awake, alert, and oriented x3. HEENT: Normocephalic and atraumatic. Oropharynx is clear with moist mucous membranes. NECK: Supple without lymphadenopathy or jugular venous distention. CHEST: Scattered rhonchi with faint end-expiratory wheezing. HEART: Regular rate and rhythm. ABDOMEN: Soft, nontender, and nondistended. EXTREMITIES: No cyanosis, clubbing, or edema. ANCILLARY DATA: White count 6.4, hemoglobin 13.2, and platelet count 338,000. ABG, 7.45/33/81/22/96. Chemistry, sodium 137, potassium 3.9, chloride 101, bicarbonate 25, BUN 11, creatinine 0.6, glucose 136, calcium 9.4, magnesium 2.0. Troponin 0.012. BNP 135. LFTs otherwise within normal limits. Urinalysis, 1+ leukocyte esterase. IMAGING: Chest x-ray showed some atelectasis at the right base. CT of the pelvis was also done, which showed no acute bony trauma. ASSESSMENT: The patient is a 67-year-old female, former smoker with history of COPD-asthma overlap syndrome, also pulmonary nodule, hypertension, spinal stenosis, and chronic low back pain, presenting for evaluation of hip pain, noted to have an exacerbation of her underlying COPD likely secondary to antecedent recent viral upper respiratory infection. PROBLEM LIST: 1. COPD with acute exacerbation. 2. Possible antecedent viral syndrome. 3. COPD-asthma overlap syndrome. 4. Questionable pulmonary nodule that was previously being followed in the [place]. 5. Obesity with likely underlying AYAAN. 6. Chronic low back pain with spinal stenosis. 7. Acute on chronic hip pain without any evidence of bony trauma or fracture on CT scan. 8. Hypertension. 9. Extensive former smoker. PLAN: 1. Optimize pulmonary hygiene/mobilize as tolerated. 2. Titrate on FiO2 to keep saturations greater than 90%. 3. The patient started on Advair and Spiriva. 4. Cbfou-tlj-dzlnv and p.r.n. DuoNebs. 5. Continue Solu-Medrol 60 mg IV b.i.d., we will taper based on clinical response. 6. Continue p.o. azithromycin (today is day #2). 7. Monitor for signs of respiratory infection. 8. We will obtain CT scan of the chest to follow up previous pulmonary nodule. 9. Monitor volumes. 10. Continue Lasix every other day. 11. Pain control/supportive care. 12. Physical therapy and occupational therapy evaluation. 13. DVT PROPHYLAXIS: Heparin subcutaneous. 14. The patient needs outpatient PFT and PSG. 15. Weight loss, diet, and exercise discussed. Dr. Seymour, thank you for allowing me to assist in the care of your patient. If I may be of any assistance in the care of your patient, please do not hesitate to ask. Juan J Sky M.D. DR: ELLIOTT JOB#: [id number] CC:
[2017-05-15] MEDS ORDERED: Docusate 100mg cap ORAL SCH (22:00)
[2017-05-15] MEDS ORDERED: Albuterol/Ipratropium 3ml neb HHN PRN (22:00)
[2017-05-16] VITALS: BP 121/53
[2017-05-16] MEDS ORDERED: oxyCODONE HCL/Acetaminophen 5/325mg ORAL PRN
[2017-05-16] MEDS: Albuterol/Ipratropium 3ml neb HHN SCH ×4 (01:00→20:00)
[2017-05-16 04:00] VITALS: BP 136/67
[2017-05-16] MEDS: Morphine Sulfate 4mg/ml Inj IVP PRN ×2 (04:59→09:14)
--- NOTE | 2017-05-16 07:41 | Pulmonology Progress Note ---
Assessment/Plan Problems: (1) COPD exacerbation (2) Asthma exacerbation (3) Hip pain (4) Lumbar spinal stenosis (5) CHF (congestive heart failure) (6) HTN (hypertension) (7) Asthma-COPD overlap syndrome (8) Chronic diastolic (congestive) heart failure (9) Acute exacerbation of COPD with asthma (10) L lower back/hip/pelvic pain Assessment/Plan ASSESSMENT: The patient is a 67-year-old female, former smoker with history of COPD-asthma overlap syndrome, also pulmonary nodule, hypertension, spinal stenosis, and chronic low back pain, presenting for evaluation of hip pain, noted to have an exacerbation of her underlying COPD likely secondary to antecedent recent viral upper respiratory infection. PROBLEM LIST: 1. COPD with acute exacerbation. 2. Possible antecedent viral syndrome. 3. COPD-asthma overlap syndrome. 4. Questionable pulmonary nodule that was previously being followed in the [place] - NOT SEEN ON CURRENT IMAGING 5. Obesity with likely underlying AYAAN. 6. Chronic low back pain with spinal stenosis. 7. Acute on chronic hip pain without any evidence of bony trauma or fracture on CT scan. 8. Hypertension. 9. Extensive former smoker. PLAN: 1. Optimize pulmonary hygiene/mobilize as tolerated. 2. Titrate on FiO2 to keep saturations greater than 90%. 3. The patient started on Advair and Spiriva. 4. Njopf-vyz-amgzx and p.r.n. DuoNebs. 5. Decrease Solu-Medrol to 40 mg IV b.i.d., we will taper based on clinical response. 6. Continue p.o. azithromycin (today is day #3). 7. Monitor for signs of respiratory infection. 8. Monitor volumes. 9. Continue Lasix every other day. 10. Pain control/supportive care. 11. Physical therapy and occupational therapy 12. DVT PROPHYLAXIS: Heparin subcutaneous. 13. The patient needs outpatient PFT and PSG. 14. Weight loss, diet, and exercise discussed 15. Encourage abstinence from smoking. Subjective Allergies: Coded Allergies: No Known Allergies (Unverified , 08/27/16) Subjective AFVSS, O2 needs stable CT chest reviewed - no mass noted, + BiB atx/scarring, some bullae MRI LS with multilevel DDD, no acute findings Less SOB, cough better, less wheezing, no F/C, still with lots of pain Objective Last 24 Hour Vital Signs Date Time Temp Pulse Resp B/P (MAP) Pulse Ox O2 Delivery O2 Flow Rate FiO2 05/16/17 05:15 81 05/16/17 04:00 97.7 88 20 136/67 97 Room Air 97.7 05/16/17 03:32 92 05/16/17 01:05 Nasal Cannula 3.0 32 05/16/17 01:05 Nasal Cannula 3.0 32 05/16/17 00:00 97.9 91 20 121/53 95 Room Air 97.9 05/15/17 21:10 88 20 98 Nasal Cannula 3.0 32 05/15/17 21:00 85 20 97 Nasal Cannula 3.0 32 05/15/17 20:00 98.1 95 20 141/74 99 98.1 05/15/17 19:17 92 05/15/17 19:03 95 20 98 Nasal Cannula 3.0 32 05/15/17 18:54 94 20 97 Nasal Cannula 3.0 32 05/15/17 18:54 Nasal Cannula 3.0 32 05/15/17 18:54 97 Nasal Cannula 3.0 32 05/15/17 16:00 118 05/15/17 16:00 96.9 90 19 103/41 97 96.9 05/15/17 13:15 Nasal Cannula 05/15/17 13:15 Nasal Cannula 05/15/17 12:00 87 05/15/17 12:00 97.5 78 18 121/60 98 97.5 05/15/17 08:17 102 147/80 05/15/17 08:00 97 05/15/17 08:00 97.6 102 19 147/80 94 97.6 Intake and Output 05/15/17 05/16/17 19:00 07:00 Intake Total 588 ml 236 ml Balance 588 ml 236 ml Intake Oral 588 ml 236 ml # Voids 2 2 General Appearance: WD/WN, no acute distress, other - obese female HEENT: normocephalic, atraumatic, anicteric, mucous membranes moist Respiratory/Chest: chest wall non-tender, lungs clear, normal breath sounds, no respiratory distress, no accessory muscle use Cardiovascular: normal peripheral pulses, normal rate, regular rhythm Abdomen: normal bowel sounds, soft, non tender, no organomegaly, non distended , no mass Extremities: no cyanosis, no clubbing, no edema Current Medications Medications (Trade) Dose Ordered Sig/Sadie Route PRN Reason Start Time Stop Time Status Last Admin Dose Admin Acetaminophen (Tylenol) 650 mg Q4H PRN ORAL Mild Pain (Pain Scale 1-3) 05/15/17 22:00 06/13/17 17:59 05/15/17 22:46 Acetaminophen (Tylenol) 650 mg Q4H PRN ORAL fever 05/15/17 22:00 06/13/17 17:59 Albuterol/ Ipratropium (Albuterol/ Ipratropium) 3 ml Q2H PRN HHN Shortness of Breath 05/15/17 22:00 05/19/17 17:59 Albuterol/ Ipratropium (Albuterol/ Ipratropium) 3 ml Q6HRT HHN 05/16/17 01:00 05/19/17 18:59 Amlodipine Besylate (Norvasc) 10 mg DAILY ORAL 05/16/17 09:00 06/14/17 08:59 Azithromycin (Zithromax) 500 mg DAILY ORAL 05/16/17 09:00 05/22/17 08:59 Bisacodyl (Dulcolax) 10 mg DAILYPRN PRN RECTAL Constipation 05/16/17 19:00 06/13/17 17:59 Dextrose (Dextrose 50%) STAT PRN IV Hypoglycemia 05/16/17 18:00 06/13/17 17:59 Docusate Sodium (Colace) 100 mg EVERY 12 HOURS ORAL 05/16/17 09:00 06/15/17 08:59 Heparin Sodium (Porcine) (Heparin 5000 units/ml) 5,000 units EVERY 12 HOURS SUBQ 05/16/17 09:00 06/13/17 20:59 Magnesium Hydroxide (Mom) 30 ml HSPRN PRN ORAL Constipation 05/16/17 18:00 06/13/17 17:59 Methylprednisolone Sodium Succinate (Solu-MEDROL) 60 mg EVERY 12 HOURS IVP 05/16/17 09:00 06/13/17 20:59 Morphine Sulfate (Morphine Sulfate) 4 mg Q4H PRN IVP breakthrough pain 05/15/17 22:30 05/21/17 18:29 05/16/17 04:59 Ondansetron HCl (Zofran) 4 mg Q6H PRN IVP Nausea & Vomiting 05/16/17 00:00 06/13/17 17:59 Oxycodone/ Acetaminophen (Percocet 10/325) 1 tab Q4H PRN ORAL severe pain 05/16/17 00:00 05/22/17 15:59 Oxycodone/ Acetaminophen (Percocet 5-325) 1 tab Q4H PRN ORAL moderate pain 05/16/17 00:00 05/22/17 15:59 Salmeterol Xinafoate/ Fluticasone (Advair 250/50 Diskus) 1 puffs BIDRT INH 05/15/17 22:00 06/14/17 08:59 Tiotropium [place] (Spiriva Inhaler) 1 puff DAILY INH 05/16/17 09:00 06/14/17 08:59 MARK PETE M.D. May 16, 2017 07:41
[2017-05-16 08:00] VITALS: BP 139/91
--- NOTE | 2017-05-16 08:32 | Diagnostic Imaging Report ---
Indication: Lumbosacral spine pain x2 days Technique: Coronal oblique T 1 fast spin echo, sagittal T2 FRFSE, axial STIR images obtained through the sacrum. In addition, lumbar spine MRI performed at same time includes most of the sacrum on the available T1, T2, and STIR sequences.. Comparison: Reference made to abdomen and pelvis CT dated 05/14/2017 Findings: Normal sacral marrow signal. The sacral neural foramina are preserved and patent. The sacroiliac joints appear unremarkable. The included pelvic soft tissues are unremarkable except for probable small degenerative uterine fibroid. The sacrum also appears normal on the accompanying lumbar spine MRI-please refer to that report for lumbar spine findings. Note that lumbar disc disease at L5-S1 is visible on this exam, as reported in detail on the lumbosacral spine MRI report Impression: Essentially unremarkable sacrum and coccyx. No acute bony trauma or other acute abnormality Please refer to accompanying lumbar spine MRI for details of lumbar disc disease Incidental finding of uterine fibroid
[2017-05-16] MEDS ORDERED: Azithromycin 250mg tab ORAL SCH (09:00)
[2017-05-16] MEDS ORDERED: Docusate 100mg cap ORAL SCH (09:00)
[2017-05-16] MEDS ORDERED: Solu-MEDROL 125mg Inj IVP SCH (09:00)
[2017-05-16] MEDS ORDERED: Heparin 5000 units/ml inj SUBQ SCH (09:00)
[2017-05-16] MEDS ORDERED: Solu-MEDROL 40mg Inj IVP SCH (09:00)
[2017-05-16] MEDS: Advair 250/50 Inhaler - 14 dose INH SCH (10:00)
[2017-05-16 12:00] VITALS: BP 140/80
[2017-05-16] MEDS ORDERED: ADVAIR 250/501 PUFFS INH (12:44)
[2017-05-16] MEDS ORDERED: SPIRIVA INHALE1 PUF1 INH (12:44)
[2017-05-16] MEDS ORDERED: oxyCODONE 15mg IR tab ORAL PRN (13:00)
[2017-05-16] MEDS ORDERED: PREDNISONE10 MG ORAL (13:04)
[2017-05-16] MEDS ORDERED: METHOCARBAMOL500 MG ORAL (13:05)
--- NOTE | 2017-05-16 13:10 | Discharge Instructions ---
Discharge Instructions Discharge Instructions Follow up with: Primary care doctor in [address] Sky in 2 weeks Services at Discharge: home health services Diet: 2 GM sodium (low sodium) Activity: resume normal activities Special Instructions Follow-up with pulmonology Dr. Sky in 2 weeks: Address: [address] [place] [address] [address] [address] For Congestive Heart Failure Reminder Report to your physician any weight gain of 5 pounds or more in one week. Raymon Seymour M.D. May 16, 2017 13:10
--- NOTE | 2017-05-16 13:19 | Discharge Instructions ---
Discharge Instructions Discharge Instructions Special Instructions Follow-up with spine surgery as an outpatient, Dr. Gume Benjamin Address: [address] [place] [address], [place] [address] For Congestive Heart Failure Reminder Report to your physician any weight gain of 5 pounds or more in one week. Raymon Semyour M.D. May 16, 2017 13:19
[2017-05-16] MEDS: Methocarbamol 500mg tab ORAL SCH ×2 (13:55→16:56)
[2017-05-16] MEDS ORDERED: Acetaminophen 500mg (ES) tab ORAL SCH (14:00)
[2017-05-16 16:00] VITALS: BP 130/60
[2017-05-16] MEDS ORDERED: Milk of Magnesia 30ml Ud ORAL PRN (18:00)
[2017-05-16 20:00] VITALS: BP 134/54
[2017-05-16] MEDS ORDERED: NS 275ml ONE (20:29)
[2017-05-16] MEDS ORDERED: Tubing IV Secondary IV ONE (20:29)
--- NOTE | 2017-05-19 08:47 | Cardiology Report ---
APPROVED REPORT EXAM: Two-dimensional and M-mode echocardiogram with Doppler and color Doppler. INDICATION S.O.B M-Mode DIMENSIONS IVSd1.9 (0.7-1.1cm)Left Atrium (MM)4.0 (1.6-4.0cm) LVDd5.9 (3.5-5.6cm)Aortic Root3.5 (2.0-3.7cm) PWd1.1 (0.7-1.1cm)Aortic Cusp Exc.2.0 (1.5-2.0cm) IVSs1.4 cm LVDs4.0 (2.5-4.0cm) PWs1.7 cm Technically difficult study due to poor acoustical windows and pts breathing. Normal left ventricular chamber size, systolic function and wall motion to extent visualized. Left ventricular ejection fraction estimated to be 60 %. Mild left ventricular hypertrophy by 2-D. No evidence of pericardial effusion All other cardiac chamber sizes are within normal limits. Focal aortic valve sclerosis with adequate cusp excursion. Thickened mitral valve leaflets with normal excursion. Mildly Mitral annulus and aortic root calcification. Pulmonic valve not well visualized. Normal tricuspid valve structure. IVC at normal size with physiologic collapse. A color flow and spectral Doppler study was performed and revealed: No aortic regurgitation. Left ventricular diastolic function not determind due to arrhythmia. Mild mitral regurgitation. Trace tricuspid regurgitation. Tricuspid systolic velocities suggests peak right ventricular systolic pressure of 20 mmHg No Pulmonic regurgitation present.
--- NOTE | 2017-05-23 08:33 | Discharge Summary ---
Discharge Summary Hospital Course Date of Admission May 14, 2017 at 16:15 Date of Discharge May 16, 2017 at 20:30 Admitting Diagnosis COPD exacerbation, Intractable lower back/hip pain Reason for Hospitalization: COPD exacerbation, Intractable lower back/hip pain HPI 67y/o female with pmh of COPD/asthma on home O2 (2-3L O2), HTN, CHF who presents with L lower back/hip pain and SOB/wheezing. Pt states she had sudden onset L lower back pain radiating toward L hip and groin for the past few days, worsening. Notes pain worse w/ laying flat, walking. States this is different than her usual spinal stenosis pain. Pain does not radiate down leg. Denies numbness/tingling, f/c, n/v, d/c, chest pain. Also notes sudden SOB/wheezing for the past few days, using rescue inhaler more often. States she is compliant w/ meds. Denies recent trauma, heavy lifting, accident. Difficulty ambulating 2/ 2 pain. Cough at baseline. In ED, pt had CT pelvis done which was unremarkable except for degenerative changes. Pt noted to have significant wheezing. Given nebs, steroids, azithro in ED. Consultations Pulmonology Hospital Course Pt was admitted and seen by pulmonology. She was treated with IV steroids, duonebs and azithro for COPD exacerbation. Her O2 requirements remained stable. CT chest showed bibasilar atelectasis/scarring, some bullae. Pt also with intractable L lower back/hip pain. MRI done showed extensive multilevel degenerative disease. Pt is to follow-up with pain mgmt and spine surgery as an outpatient. Once pain controlled and respiratory status stable, pt was discharge home with home health. Discharge diagnoses: (1) Acute exacerbation of COPD with asthma ICD Codes: J44.1 - Chronic obstructive pulmonary disease with (acute) exacerbation; J45.901 - Unspecified asthma with (acute) exacerbation SNOMED: 1824093826683 (2) L lower back/hip/pelvic pain Assessment & Plan: Intractable pain w/ difficulty ambulating (3) Chronic diastolic (congestive) heart failure ICD Codes: I50.32 - Chronic diastolic (congestive) heart failure SNOMED: 72245099, 045002056 (4) HTN (hypertension) ICD Codes: I10 - Essential (primary) hypertension SNOMED: 41138764 (5) Lumbar spinal stenosis ICD Codes: M48.061 - Spinal stenosis, lumbar region without neurogenic claudication Discharge Medications New Medications: Prednisone* (Prednisone*) 10 Mg Tablet 10 MG ORAL DAILY for 26 Days, #10 TAB 0 Refills 60mg daily x 2 days, then 40mg daily x 2 days, then 20mg daily x 2 days, then 10mg daily x 2 days Fluticasone/Salmeterol (Advair 250-50 Diskus) 1 Each Blst.w.dev 1 PUFFS INH BIDRT for 30 Days, #1 TUB 3 Refills Methocarbamol* (Methocarbamol*) 500 Mg Tablet 500 MG ORAL QID for 30 Days, #60 TAB 3 Refills Tiotropium Gordon (Spiriva) 18 Mcg Cap.w.dev 1 PUFF INH DAILY for 30 Days, #1 TUBE 3 Refills Continued Medications: Albuterol Sulfate (Ventolin Hfa) 18 Gm Hfa.aer.ad 2 PUFFS INH EVERY 4 HOURS, #18 GM 0 Refills (This prescription has been renewed) Albuterol Sulfate* (Albuterol Sulfate Hhn*) 2.5 Mg/3 Ml Vial.neb 1 VIAL INH Q6HR (This prescription has been renewed) Amlodipine Besylate* (Amlodipine Besylate*) 10 Mg Tablet 10 MG PO DAILY (This prescription has been renewed) Benazepril Hcl* (Benazepril Hcl*) 40 Mg Tablet 40 MG PO DAILY (This prescription has been renewed) Furosemide* (Lasix*) 20 Mg Tablet 20 MG PO DAILY (This prescription has been renewed) Hydrocodone/Acetaminophen 5-325* (Hydrocodone/Acetaminophen 5-325*) 1 Each Tablet Q6HR PRN for For Pain (This prescription has been renewed) Discontinued Medications: Ibuprofen* (Motrin*) 600 Mg Tablet 500 MG ORAL FOUR TIMES A DAY, #30 TAB 0 Refills Discharge Condition Upon Discharge: stable Discharge Disposition Patient was discharged to Home with Home Health() Discharge Instructions Discharge Instructions Follow up with: Primary care doctor in [address] Sky in 2 weeks Services Upon Discharge: home health services Activity: resume normal activities Raymon Seymour M.D. May 23, 2017 08:33
--- NOTE | 2017-05-24 18:21 | Cardiology Report ---
APPROVED REPORT EKG Measurement Heart [id number] Sinus rhythm with 1st degree AV block with premature atrial complexes Otherwise normal ECG
== END 2017-05-16 20:30 | disposition home health service (06) | DRG 191 ==
LOC: EDBD 13:50 → EMR 14:26 → 2E 16:15 → EDBEDREQ 16:18
DX: J44.1 Chronic obstructive pulmonary disease with (acute) exacerbation (principal); J45.901 Unspecified asthma with (acute) exacerbation; I50.32 Chronic diastolic (congestive) heart failure; Z68.41 Body mass index [BMI] 40.0-44.9, adult; I11.0 Hypertensive heart disease with heart failure; M48.061 Spinal stenosis, lumbar region without neurogenic claudication; G47.33 Obstructive sleep apnea (adult) (pediatric); R91.1 Solitary pulmonary nodule; B34.9 Viral infection, unspecified; E66.9 Obesity, unspecified; Z87.891 Personal history of nicotine dependence; Z99.81 Dependence on supplemental oxygen
CPT/HCPCS: 36415; 36600; 71045; 71250; 72148; 72192; 72195; 80048; 80053; 81003; 82803; 82962; 83690; 83735; 83880; 84484; 85007; 85025; 93005; 93306; 94640; 94664; 94760; 99285; J7620

== ENCOUNTER 2017-06-26 22:44 | Emergency (ER) | payer MEDICARE, MEDICAID ==
[~2017-06-26] VITALS: Ht 154.9 cm; Wt 92.5 kg
[~2017-06-26 22:44] MED LIST changes: +ADVAIR 250/501 PUFFS INH; +ALBUTEROL2.5 MG/3 M INH; +AMLODIPINE BESY10 MG PO; +BENAZEPRIL HCL40 MG PO; +FUROSEMIDE20 M1 PO; +HYDROCODON-ACE1 EA15; +IBUPROFEN600 MG ORAL; +METHOCARBAMOL500 MG ORAL; +PREDNISONE10 MG ORAL; +SPIRIVA INHALE1 PUF1 INH; +UNOBMED
[2017-06-26 22:45] VITALS: BP 162/100
[2017-06-26] MEDS ORDERED: Albuterol ud Inhalation HHN ONE (23:00)
[2017-06-26] MEDS ORDERED: Ipratropium 0.02% Inh Soln 2.5ml UD HHN ONE (23:00)
[2017-06-26] MEDS ORDERED: Solu-MEDROL 125mg Inj IVP ONE (23:00)
[2017-06-26 23:15] LABS: BASOPHILS % (AUTO) 1.2 % (0.0-2.0); EOSINOPHILS % (AUTO) 8.7 % (0.0-3.0); HEMATOCRIT 43.8 % (37.0-47.0); HEMOGLOBIN 14.7 G/DL (12.0-16.0); MEAN CORPUSCULAR VOLUME 93 FL (80-99); MONOCYTES % (AUTO) 7.6 % (1.0-10.0); NEUTROPHILS % (AUTO) 62.5 % (45.0-75.0); PLATELET COUNT 376 K/UL (150-450); RED BLOOD COUNT 4.69 M/UL (4.20-5.40); RED CELL DISTRIBUTION WIDTH 11.5 % (11.6-14.8); WHITE BLOOD COUNT 12.7 K/UL (4.8-10.8)
[2017-06-26] MEDS ORDERED: Mylanta II UD 30ml ORAL ONE (23:15)
[2017-06-26 23:22] LABS: ANION GAP 9 mmol/L (5-15); BLOOD UREA NITROGEN 10 mg/dL (7-18); CALCIUM 9.9 MG/DL (8.5-10.1); CARBON DIOXIDE 30 MMOL/L (21-32); CHLORIDE 98 MMOL/L (98-107); CREATININE 0.8 MG/DL (0.55-1.30); POTASSIUM 3.8 MMOL/L (3.5-5.1); SODIUM 137 MMOL/L (136-145)
[2017-06-26 23:55] VITALS: BP 129/78
[2017-06-27] MEDS ORDERED: PREDNISONE20 MG ORAL (00:13)
--- NOTE | 2017-06-27 00:13 | Emergency Room Report ---
History of Present Illness General Chief Complaint: Dyspnea/Respdistress Source: Patient Present Illness HPI This is a 67-year-old female with history of COPD. She is on oxygen at home. She presents with chief complaint of wheezing. Onset today. She said she is out of her nebulizer medication. She scheduled to pick him up in 2 days. Her inhaler is not helping. She said she needed prednisone. She was just admitted here recently. No fever chills. Cough is nonproductive in nature. Wheezing better with rest. Worse with exertion. Denies any other complaint. Similar symptom in the past. History of smoking but no longer. Allergies: Coded Allergies: No Known Allergies (Unverified , 08/27/16) Patient History Past Medical History: see triage record, old chart reviewed Past Surgical History: other Pertinent Family History: none Social History: Denies: smoking Now: No Immunizations: other Reviewed Nursing Documentation: PMH: Agreed; PSxH: Agreed Nursing Documentation-PMH Hx Cardiac Problems: Yes - CHF Hx Hypertension: Yes Hx Asthma: Yes Hx COPD: Yes Review of Systems Eye: Denies: eye pain, blurred vision ENT: Denies: ear pain, nose congestion, throat swelling Respiratory: Reports: cough, shortness of breath, wheezing Cardiovascular: Denies: chest pain, palpitations Gastrointestinal: Denies: abdominal pain, diarrhea, nausea, vomiting Musculoskeletal: Denies: back pain, joint pain Skin: Denies: rash Neurological: Denies: headache, numbness Endocrine: Denies: increased thirst, increased urine Hematologic/Lymphatic: Denies: easy bruising All Other Systems: negative except mentioned in HPI Physical Exam Vital Signs Date Time Temp Pulse Resp B/P (MAP) Pulse Ox O2 Delivery O2 Flow Rate FiO2 06/26/17 22:38 98.0 106 28 162/100 89 Room Air 98.1 06/26/17 22:54 2.0 28 vitals with hypoxia and hypertension Sp02 EP Interpretation: reviewed, normal General Appearance: well appearing, alert, mild distress Head: normocephalic, atraumatic Eyes: bilateral eye PERRL, bilateral eye EOMI ENT: hearing grossly normal, normal pharynx Neck: full range of motion, supple, no meningismus Respiratory: chest non-tender, respiratory distress - mild, accessory muscle use, wheezing Cardiovascular #1: regular rate, rhythm, no murmur Gastrointestinal: normal bowel sounds, non tender, no mass, no organomegaly, no bruit, non-distended Musculoskeletal: back normal, gait/station normal, normal range of motion Psychiatric: mood/affect normal Skin: warm/dry Medical Decision Making Diagnostic Impression: Primary Impression: Acute exacerbation of COPD with asthma ER Course Patient with COPD exacerbation. Wheezing resolved after breathing treatment and steroid. Patient said that "I feel great now. I can run around the room without any problem." No evidence of any ACS, PE, dissection, CHF, pneumonia to name a few. She wants to go home. We'll discharge home. Lab Results Impression labs unremarkable EKG Diagnostic Results Rate: normal Rhythm: NSR ST Segments: no acute changes Rhythm Strip Diag. Results Rhythm Strip Time: 00:12 EP Interpretation: yes Rate: 88 Rhythm: NSR, no PVC's, no ectopy Chest X-Ray Diagnostic Results Chest X-Ray Diagnostic Results : Chest X-Ray Ordered: Yes # of Views/Limited/Complete: 1 View Indication: Shortness of Breath EP Interpretation: Yes Interpretation: no consolidation, no effusion, no pneumothorax, no acute cardiopulmonary disease, other - COPD Impression: No acute disease Electronically Signed by: Seven Lazar MD Last Vital Signs Date Time Temp Pulse Resp B/P (MAP) Pulse Ox O2 Delivery O2 Flow Rate FiO2 06/26/17 23:55 97.9 100 22 129/78 100 Nasal Cannula 2.0 28 97.9 Status: improved Disposition: HOME, SELF-CARE Condition: Stable Scripts Prednisone* (PREDNISONE*) 20 Mg Tablet 60 MG ORAL DAILY, #15 TAB Prov: SEVEN LAZAR M.D. 06/27/17 Referrals: NOT CHOSEN IPA/,REFERRING (PCP) Patient Instructions: Chronic Obstructive Pulmonary Disease Exacerbation Additional Instructions: Follow-up with your DrBrayden in 2-3 days. Return if symptom worsen. SEVEN LAZAR M.D. June 27, 2017 00:13
[2017-06-27] MEDS ORDERED: Albuterol ud Inhalation HHN ONE (00:15)
[2017-06-27 01:10] VITALS: BP 131/57
[2017-06-27 01:18] VITALS: BP 131/57
--- NOTE | 2017-06-27 17:04 | Diagnostic Imaging Report ---
Indication: Shortness of breath Technique: XRAY Chest 1v Comparison: None Findings: Heart size and mediastinal contours are stable. There is no focal consolidation, pneumothorax or pleural effusion. Osseous structures demonstrate no acute abnormality. Impression: No radiographic evidence of acute cardiopulmonary disease.
[2017-06-28] MEDS ORDERED: PREDNISONE20 MG ORAL (15:47)
[2017-06-28] MEDS ORDERED: ALBUTEROL2.5 MG/3 M HHN (15:47)
--- NOTE | 2017-06-29 12:03 | Cardiology Report ---
APPROVED REPORT EKG Measurement Heart [id number] CT [id number] Sinus rhythm with 1st degree AV block with premature atrial complexes with aberrant conduction Otherwise normal ECG
== END 2017-06-27 01:18 | disposition home or self-care (01) ==
LOC: EDBD 22:44 → EMR 22:54
DX: J44.1 Chronic obstructive pulmonary disease with (acute) exacerbation (principal); Z99.81 Dependence on supplemental oxygen; I11.0 Hypertensive heart disease with heart failure; I50.9 Heart failure, unspecified
CPT/HCPCS: 36415; 71045; 80048; 83880; 84484; 85025; 93005; 94640; 96374; 96375; 99283; J2930

== ENCOUNTER 2017-06-28 14:07 | Emergency (ER) | payer MEDICARE, MEDICAID ==
[~2017-06-28] VITALS: Ht 162.6 cm; Wt 92.5 kg
[2017-06-28 14:07] VITALS: BP 110/80
[2017-06-28] MEDS ORDERED: Sodium Chloride 500ML 500 ML IV ONE (14:18)
[2017-06-28] MEDS ORDERED: Albuterol ud Inhalation HHN ONE ×2 (14:30→16:30)
[2017-06-28] MEDS ORDERED: Ipratropium 0.02% Inh Soln 2.5ml UD HHN ONE ×2 (14:30→16:30)
[2017-06-28] MEDS ORDERED: Solu-MEDROL 125mg Inj IVP ONE (14:30)
--- NOTE | 2017-06-28 14:42 | Emergency Room Report ---
History of Present Illness General Chief Complaint: Dyspnea/Respdistress Source: Patient Present Illness HPI Patient presents with complaints of shortness of breath She reports that her breathing treatments at home were not helping very much And eyes any chest pain denies any pleurisy Denies any fevers or chills patient reports history of COPD Reports that she was here recently Denies any recent travel Allergies: Coded Allergies: No Known Allergies (Unverified , 08/27/16) Patient History Past Medical History: see triage record Pertinent Family History: none Reviewed Nursing Documentation: PMH: Agreed; PSxH: Agreed Nursing Documentation-PMH Past Medical History: No History, Except For Hx Cardiac Problems: Yes - CHF Hx Hypertension: Yes Hx COPD: Yes Review of Systems All Other Systems: negative except mentioned in HPI Physical Exam Vital Signs Date Time Temp Pulse Resp B/P (MAP) Pulse Ox O2 Delivery O2 Flow Rate FiO2 06/28/17 13:47 98.0 112 24 102/60 93 Nasal Cannula 3.0 98.1 Sp02 EP Interpretation: reviewed, normal General Appearance: well appearing, no apparent distress Head: normocephalic, atraumatic Eyes: bilateral eye PERRL, bilateral eye EOMI ENT: hearing grossly normal, normal pharynx, TMs + canals normal, uvula midline Neck: full range of motion, supple, no meningismus, no bony tend Respiratory: no respiratory distress, no retraction, no accessory muscle use, wheezing - Bilaterally Cardiovascular #1: normal peripheral pulses, no edema, no gallop, no JVD, no murmur, tachycardia Gastrointestinal: normal bowel sounds, non tender, soft, no mass, no organomegaly, non-distended, no guarding, no hernia, no pulsatile mass, no rebound Genitourinary: no CVA tenderness Musculoskeletal: normal inspection Neurologic: oriented x3, responsive, systems design engineer III-XII nml as tested, motor strength/ tone normal, sensory intact Psychiatric: mood/affect normal Skin: normal color, no rash, warm/dry, palpation normal Lymphatic: normal inspection, no adenopathy Medical Decision Making Diagnostic Impression: Primary Impression: Acute exacerbation of COPD with asthma ER Course Patient is a fairly complex patient with multiple differential to consideration including but not limited to cardiac cardiopulmonary and vascular emergencies Patient had breathing treatments initiated steroids as well Patient had recent presentation to the hospital And does have significant COPD Blood work is appropriate ABG does reveal some CO2 retention On repeat evaluation however patient continues to saturate at 95% on 2 L oxygen Which she is on at home feels significantly better And will have conservative outpatient trial Labs Test 06/28/17 14:15 06/28/17 14:18 White Blood Count 14.1 K/UL (4.8-10.8) Red Blood Count 4.24 M/UL (4.20-5.40) Hemoglobin 13.9 G/DL (12.0-16.0) Hematocrit 39.6 % (37.0-47.0) Mean Corpuscular Volume 93 FL (80-99) Mean Corpuscular Hemoglobin 32.9 PG (27.0-31.0) Mean Corpuscular Hemoglobin Concent 35.2 G/DL (32.0-36.0) Red Cell Distribution Width 11.2 % (11.6-14.8) Platelet Count 362 K/UL (150-450) Mean Platelet Volume 7.3 FL (6.5-10.1) Neutrophils (%) (Auto) % (45.0-75.0) Lymphocytes (%) (Auto) % (20.0-45.0) Monocytes (%) (Auto) % (1.0-10.0) Eosinophils (%) (Auto) % (0.0-3.0) Basophils (%) (Auto) % (0.0-2.0) Differential Total Cells Counted 100 Neutrophils % (Manual) 93 % (45-75) Lymphocytes % (Manual) 3 % (20-45) Monocytes % (Manual) 4 % (1-10) Eosinophils % (Manual) 0 % (0-3) Basophils % (Manual) 0 % (0-2) Band Neutrophils 0 % (0-8) Platelet Estimate Adequate Platelet Morphology Normal Red Blood Cell Morphology Normal Sodium Level 136 MMOL/L (136-145) Potassium Level 4.8 MMOL/L (3.5-5.1) Chloride Level 96 MMOL/L (98-107) Carbon Dioxide Level 31 MMOL/L (21-32) Anion Gap 9 mmol/L (5-15) Blood Urea Nitrogen 12 mg/dL (7-18) Creatinine 0.6 MG/DL (0.55-1.30) Estimat Glomerular Filtration Rate > 60 mL/min (>60) Glucose Level 151 MG/DL (74-106) Calcium Level 9.6 MG/DL (8.5-10.1) Total Bilirubin 0.4 MG/DL (0.2-1.0) Aspartate Amino Transf (AST/SGOT) 33 U/L (15-37) Alanine Aminotransferase (ALT/SGPT) 32 U/L (12-78) Alkaline Phosphatase 78 U/L (46-116) Total Creatine Kinase 435 U/L (26-308) Creatine Kinase MB 9.0 NG/ML (0.0-3.6) Creatine Kinase MB Relative Index 2.0 Troponin I 0.000 ng/mL (0.000-0.056) Pro-B-Type Natriuretic Peptide 447 pg/mL (0-125) Total Protein 8.3 G/DL (6.4-8.2) Albumin 4.2 G/DL (3.4-5.0) Globulin 4.1 g/dL Albumin/Globulin Ratio 1.0 (1.0-2.7) Arterial Blood pH 7.400 (7.350-7.450) Arterial Blood Partial Pressure CO2 55.2 mmHg (35.0-45.0) Arterial Blood Partial Pressure O2 51.2 mmHg (75.0-100.0) Arterial Blood HCO3 33.6 mmol/L (22.0-26.0) Arterial Blood Oxygen Saturation 86.5 % (92.0-98.0) Arterial Blood Base Excess 7.2 Asa Test Positive Rhythm Strip Diag. Results EP Interpretation: yes Rate: 89 Rhythm: NSR, no PVC's, no ectopy Chest X-Ray Diagnostic Results Chest X-Ray Diagnostic Results : Chest X-Ray Ordered: Yes # of Views/Limited/Complete: 1 View Indication: Shortness of Breath EP Interpretation: Yes Interpretation: no consolidation, no effusion, no pneumothorax, other - Left lower latelectasis Impression: No acute disease - No change from 2 days ago Electronically Signed by: Bella Roach DO Last Vital Signs Date Time Temp Pulse Resp B/P (MAP) Pulse Ox O2 Delivery O2 Flow Rate FiO2 06/28/17 14:07 98.0 124 28 110/80 96 Nasal Cannula 3.0 98.0 Status: improved Disposition: HOME, SELF-CARE Condition: Improved Scripts Albuterol Sulfate* (ALBUTEROL SULFATE HHN*) 2.5 Mg/3 Ml Vial.neb 5 MG HHN Q4H PRN for Shortness of Breath, #25 VIAL Prov: Bella Roach DO 06/28/17 Prednisone* (PREDNISONE*) 20 Mg Tablet 20 MG ORAL BID, #10 TAB Prov: Bella Roach DO 06/28/17 Additional Instructions: Patient is provided with the discharge instructions notified to follow up with primary doctor in the next 2-3 days otherwise return to the er with any worsening symptoms. Please note that this report is being documented using [employer] technology. This can lead to erroneous entry secondary to incorrect interpretation by the dictating instrument. Bella Roach DO June 28, 2017 14:42
[2017-06-28 14:53] LABS: HEMATOCRIT 39.6 % (37.0-47.0); HEMOGLOBIN 13.9 G/DL (12.0-16.0); MEAN CORPUSCULAR VOLUME 93 FL (80-99); PLATELET COUNT 362 K/UL (150-450); RED BLOOD COUNT 4.24 M/UL (4.20-5.40); RED CELL DISTRIBUTION WIDTH 11.2 % (11.6-14.8); WHITE BLOOD COUNT 14.1 K/UL (4.8-10.8)
[2017-06-28 14:58] VITALS: BP 108/59
[2017-06-28 15:01] LABS: ANION GAP 9 mmol/L (5-15); BLOOD UREA NITROGEN 12 mg/dL (7-18); CALCIUM 9.6 MG/DL (8.5-10.1); CARBON DIOXIDE 31 MMOL/L (21-32); CHLORIDE 96 MMOL/L (98-107); CREATININE 0.6 MG/DL (0.55-1.30); POTASSIUM 4.8 MMOL/L (3.5-5.1); SODIUM 136 MMOL/L (136-145)
[2017-06-28 15:16] LABS: ALANINE AMINOTRANSFERASE 32 U/L (12-78); ALBUMIN 4.2 G/DL (3.4-5.0); ALKALINE PHOSPHATASE 78 U/L (46-116); ASPARTATE AMINO TRANSFERASE 33 U/L (15-37); BILIRUBIN,TOTAL 0.4 MG/DL (0.2-1.0); CREATINE KINASE 435 U/L (26-308)
[2017-06-28] MEDS ORDERED: PREDNISONE20 MG ORAL (15:47)
[2017-06-28] MEDS ORDERED: ALBUTEROL2.5 MG/3 M HHN (15:47)
[2017-06-28 16:59] VITALS: BP 108/59
[2017-06-28 19:00] VITALS: BP 121/65
[2017-06-28 19:11] VITALS: BP 121/65
--- NOTE | 2017-06-29 11:42 | Cardiology Report ---
APPROVED REPORT EKG Measurement Heart [id number] Sinus tachycardia Otherwise normal ECG
== END 2017-06-28 20:00 | disposition home or self-care (01) ==
LOC: EDBD 14:07 → EMR 14:40
DX: J44.1 Chronic obstructive pulmonary disease with (acute) exacerbation (principal); I11.0 Hypertensive heart disease with heart failure; I50.9 Heart failure, unspecified
CPT/HCPCS: 36415; 36600; 71045; 80053; 82550; 82553; 82803; 83880; 84484; 85007; 85025; 87040; 93005; 94640; 94664; 96374; 96375; 99284; J2930; J7040